=== PATIENT | male | born 1955 | race Native Hawaiian/Other Pacific Islander ===

== ENCOUNTER 2020-06-04 10:14 | Inpatient (IN) | payer OTHER ==
[~2020-06-04] VITALS: Ht 175.3 cm; Wt 83.9 kg
[2020-06-04 13:24] VITALS: BP 117/68
[2020-06-04 16:19] LABS: HEMOGLOBIN 12.2 gm/dL (14.0-18.0); MCH 28.9 pg (26.0-34.0); MCV 87.7 fL (80.0-100.0); RBC 4.22 mil/uL (4.50-6.00); RDW 14.3 % (10.5-14.5); WBC 19.9 thou/uL (4.0-11.0)
[2020-06-04 16:30] VITALS: BP 137/76
[2020-06-04 16:40] LABS: ALBUMIN 3.5 g/dL (3.4-5.0); CALCIUM 8.5 mg/dL (8.5-10.1); CREATININE 2.7 mg/dL (0.7-1.3); MAGNESIUM 1.9 mg/dL (1.8-2.4); POTASSIUM 5.1 mmol/L (3.5-5.1)
[2020-06-04 19:54] VITALS: BP 130/80
--- NOTE | 2020-06-05 01:59 | NUR ---
ASSUMED PT CARE AT 1900.PT WAS OBSERVED LYING ON THE BED SHACLED ON HIS L ARM AND R LEG TO THE BED WITH TWO POLICE MEN IN THE ROOM.PT DENIED PAIN SO FAR.PT'S LITTLE BLOOD TINGED WITH A COUPLE OF BLOOD CLOTS NOTED IN THE BAG.LITTLE CATH EMPTIED,500CC OUTPUT NOTED.LITTLE CATH FLUSHED PERIODICALLY, URINE CLEARING UP.UA COLLECTED AND SENT TO THE LAB.CALL LIGHT WITHIN REACH.
[2020-06-05 03:32] VITALS: BP 118/68
[2020-06-05 04:38] LABS: URINE BILIRUBIN NEGATIVE (Negative); URINE BLOOD 3+ (Negative); URINE CLARITY CLOUDY; URINE COLOR RED; URINE GLUCOSE-RANDOM* NEGATIVE (Negative); URINE KETONES NEGATIVE (Negative); URINE LEUKOCYTES-REFLEX TRACE (Negative); URINE NITRITE-REFLEX NEGATIVE (Negative); URINE PROTEIN (DIPSTICK) 3+ (Negative); URINE UROBILINOGEN 0.2 E.U./dl (0.2-1.0)
[2020-06-05 05:26] LABS: BACTERIA-REFLEX 1-9 Few /HPF (None Seen); CASTS None Seen /LPF (None Seen); CRYSTALS None Seen /LPF (None Seen); MUCUS 4-6 Moderate strn/LPF (None Seen); SQUAMOUS 0-3 Few /LPF (0-3); URINE RBC >20 Many /HPF (0-2); URINE WBC-REFLEX 0-5 Rare /HPF (0-5)
[2020-06-05 07:20] VITALS: BP 122/68
--- NOTE | 2020-06-05 09:35 | NUR ---
ASSESSMENT: CM REVIEWED CHART. PT IS FROM [facility] AND WAS TRANSFERED FROM [facility] DUE TO URINARY RETENTION AND NEED FOR UROLOGY. PT HAS A FOWLEY CATHER IN PLACE. CM SPOKE WITH 2 OFFICERS THAT ARE WITH PATIENT AT THE BEDSIDE TO RECEIVE CONTACT NUMBER FOR FACILITY. DANIAL WAS DIRECTED TO CALL [facility] AT [phone] AND SPOKE WITH CAL THE RN WHO REPORTS PT CAN COME BACK WITH A FOWLEY CATHETER. SHE STATES TO CONTACT HER AT TIME OF DISCHARGE TO MAKE SURE THEY HAVE ANY MEDICATIONS THAT PT MAY NEED. DANIAL SPOKE WITH ATTENDING. LABS WILL BE DRAWN AND DISCUSS WITH UROLOGY BUT PT MAY BE NEAR D/C. CM WILL CONTINUE TO FOLLOW TO ASSIST NEEDED.
[2020-06-05 10:15] LABS: HEMATOCRIT 29.8 % (42.0-52.0); MCH 28.6 pg (26.0-34.0); MCHC 32.8 g/dL (28.0-37.0); MCV 87.3 fL (80.0-100.0); RBC 3.41 mil/uL (4.50-6.00); RDW 14.3 % (10.5-14.5); WBC 13.6 thou/uL (4.0-11.0)
[2020-06-05 10:20] LABS: HEMOGLOBIN 9.8 gm/dL (14.0-18.0)
[2020-06-05 10:25] LABS: CALCIUM 8.1 mg/dL (8.5-10.1); CREATININE 1.6 mg/dL (0.7-1.3); MAGNESIUM 2.1 mg/dL (1.8-2.4); POTASSIUM 3.7 mmol/L (3.5-5.1)
--- NOTE | 2020-06-05 12:32 | NUR ---
ASSUMED CARE OF PATIENT AT 07:00 PT ALERT XS 4. HAD ILTTLE PLACED BY UROLOGY URINE IN LITTLE BAG IS PINK TINGED 1500 CC IN BAG. UROLOGY NURSE TO COME OUT THIS AFTERNOON [facility] [phone]. CONT ON IV FLUIDS AND ABTS. PT PLEASANT AND COOPERATIVE WITH CARE.
[2020-06-05 16:10] VITALS: BP 120/68
[2020-06-05 19:44] VITALS: BP 128/68
--- NOTE | 2020-06-06 00:44 | NUR ---
ASSUMED PT CARE AT 1900.PT WAS OBSERVED LYING ON HIS BED WATCHING TV.PT HAS NOT GOTTEN OUT OF BED SINCE ADMISSION AND AND DOESNT MOVE AROUND MUCH WHILE IN BED.PT WAS LATER RELEASED FROM HIS HANDCUFF AND WAS ALLOWED TO GET OFF THE BED AND WALK AROUND IN ROOM FOR SOME MIN BEFORE HE WENT BACK TO BED.TWO OFIICERS PRESENT IN HIS ROOM AT ALL TIMES.LITTLE TO DD WITH LIGHT YELLOW URINE NOTED IN THE BAG.PT DENIED PAIN SO FAR.PT RESTING ON HIS BED AT THIS TIME.CALL LIGHT WITHIN REACH.
[2020-06-06 03:45] VITALS: BP 115/71
[2020-06-06 05:17] LABS: HEMATOCRIT 26.2 % (42.0-52.0); HEMOGLOBIN 8.8 gm/dL (14.0-18.0); MCH 29.3 pg (26.0-34.0); MCHC 33.5 g/dL (28.0-37.0); MCV 87.4 fL (80.0-100.0); RDW 14.3 % (10.5-14.5); WBC 9.5 thou/uL (4.0-11.0)
[2020-06-06 05:23] LABS: CALCIUM 7.9 mg/dL (8.5-10.1); CREATININE 1.3 mg/dL (0.7-1.3); POTASSIUM 3.9 mmol/L (3.5-5.1)
[2020-06-06 07:16] VITALS: BP 112/61
[2020-06-06 11:09] LABS: HEMATOCRIT 25.8 % (42.0-52.0); HEMOGLOBIN 8.6 gm/dL (14.0-18.0); MCH 29.1 pg (26.0-34.0); MCHC 33.5 g/dL (28.0-37.0); MCV 86.8 fL (80.0-100.0); RBC 2.97 mil/uL (4.50-6.00); RDW 14.1 % (10.5-14.5); WBC 7.6 thou/uL (4.0-11.0)
[2020-06-06] MEDS ORDERED: FLOMAX0.4 MG PO (11:44)
[2020-06-06 13:39] VITALS: BP 112/61
--- NOTE | 2020-06-06 13:41 | NUR ---
ON-GOING ASSESSMENT: CM REVIEWED CHART AND SPOKE WITH BEDSIDE RN. PT IS TO DISCHARGE BACK TO [facility] TODAY VIA TRANSPORT FROM THE [employer]TY GUARDS THAT ARE CURRENTLY IN PTS ROOM WITH HIM. DISCHARGE PAPERWORK WILL NEED TO BE SENT BACK WITH PATIENT. DANIAL PROVIDED BEDSIDE RN WITH THE CONTACT NUMBER FOR RN AT [facility] TO DISCUSS DISCHARGE AND FOLLOW UP ([phone]). NO FURTHER NEEDS FROM DANIAL AT THIS TIME.
[2020-06-06 16:08] VITALS: BP 114/58
--- NOTE | 2020-06-06 16:51 | NUR ---
DISCHARGE PAPERS REVIEWED WITH PATIENT AND LEAVENWORTH CORRECTIONS. FOUND LITTLE LEG BAG XS2 FROM CENTRAL SUPPLY PUT ON PATIENT. PT ALERT XS 4 STATES NO PAIN OR RESP DISTRESS AT DISCHARGE FEED BOX SNACK DRINK AND DESSERTS BEFORE PAIENT DISCHARGED. ALSO HAD NEW ORDER FOR COLACE BID. GAVE PATIENT 1 DOSE BEFORE DISCHARGE.
[2020-06-06 17:11] VITALS: BP 114/58
--- NOTE | 2020-06-06 18:56 | NUR ---
PATIENT DISCHARGED AT THIS TIME TOOK ALL BELONGINGS. FOUND LEG BAG CATH AND ATTACHED. TAKEN VIA W/C TO ER AND AWAITING POLICE VAN. PATIENT W/O PAIN OR RESP DISTRESS AT DC. ACCOMPANIED BY 2 OFFICERS.
== END 2020-06-06 19:05 | DRG 696 ==
LOC: 4S 12:14
PROVIDERS: Internal Medicine; ADMIT Internal Medicine; ATTEND Internal Medicine
PROC: 0TJB8ZZ Inspection of Bladder, Via Natural or Artificial Opening Endoscopic (ICD-10-PCS; principal; 2020-06-04)
DX: R31.0 Gross hematuria (principal); R65.10 Systemic inflammatory response syndrome (SIRS) of non-infectious origin without acute organ dysfunction; N17.9 Acute kidney failure, unspecified; N18.9 Chronic kidney disease, unspecified; R33.9 Retention of urine, unspecified; N36.5 Urethral false passage; Z79.899 Other long term (current) drug therapy
CPT/HCPCS: 10102